=== PATIENT | male | born 1960 | race Caucasian/White ===

== ENCOUNTER → 2021-10-03 | Outpatient (CLI) | payer OTHER | LOC: CAT 11:04 | PROVIDERS: ATTEND Nurse Practitioner | DX: Z13.6 Encounter for screening for cardiovascular disorders (principal); E78.00 Pure hypercholesterolemia, unspecified; I25.10 Atherosclerotic heart disease of native coronary artery without angina pectoris ==

== ENCOUNTER → 2021-10-03 | Outpatient (CLI) | payer OTHER ==
[2021-10-03 13:16] LABS: ABSOLUTE NEUTROPHILS 3.5 thou/uL (1.4-8.2); BASOPHILS 0.5 % (0.0-2.0); EOSINOPHILS 3.7 % (0.0-3.0); HEMATOCRIT 45.8 % (42.0-52.0); HEMOGLOBIN 15.6 gm/dL (14.0-18.0); LYMPHOCYTES 25.3 % (24.0-44.0); MCH 31.9 pg (26.0-34.0); MCHC 34.1 g/dL (28.0-37.0); MCV 93.8 fL (80.0-100.0); PLATELET COUNT 236 thou/uL (150-400); POLYS 62.5 % (36.0-66.0); RBC 4.88 mil/uL (4.50-6.00); RDW 12.4 % (10.5-14.5); WBC 5.6 thou/uL (4.0-11.0)
[2021-10-03 13:45] LABS: ANION GAP 7 mmol/L (7-16); BUN 17 mg/dL (7-18); CHLORIDE 104 mmol/L (98-107); CHOLESTEROL 204 mg/dL (<200); CO2 29 mmol/L (21-32); CREATININE 0.9 mg/dL (0.7-1.3); GLUCOSE 98 mg/dL (74-106); HDL CHOLESTEROL 70 mg/dL (>40); LDL CHOLESTEROL 121 mg/dL (<100); POTASSIUM 4.3 mmol/L (3.5-5.1); SGOT 13 U/L (15-37); SGPT 29 U/L (30-65); SODIUM 140 mmol/L (136-145); TC:HDL 2.9 Ratio (Not establshd); TOTAL BILIRUBIN 0.5 mg/dL (0.2-1.0); TOTAL PROTEIN 7.8 g/dL (6.4-8.2); TRIGLYCERIDE 68 mg/dL (<150); VLDL 14 mg/dL (<40)
== END ==
LOC: LAB 11:01
PROVIDERS: ATTEND Nurse Practitioner
DX: Z00.00 Encounter for general adult medical examination without abnormal findings (principal)